=== PATIENT | male | born 1980 | race Caucasian/White ===

== ENCOUNTER 2018-10-10 01:29 | Emergency (ER) | payer MEDICAID ==
[~2018-10-10] VITALS: Ht 188 cm; Wt 84.8 kg
[2018-10-10 01:47] VITALS: BP 129/91
[2018-10-10] MEDS ORDERED: KETOROLAC 30 MG/ML VIAL IM ONE (02:30)
[2018-10-10 06:21] VITALS: BP 122/78
== END 2018-10-10 06:21 | disposition home or self-care (01) ==
LOC: MED 01:29
DX: M79.671 Pain in right foot (principal); M79.672 Pain in left foot
CPT/HCPCS: 96372; 99283; J1885